=== PATIENT | female | born 1995 | race Caucasian/White ===

== ENCOUNTER 2018-02-25 09:14 | Emergency (ER) | payer OTHER ==
[2018-02-25] MEDS ORDERED: NS(*) 0.9% 1000 ML BAG 1,000 ML IV ONE ×2 (09:26→09:27)
[2018-02-25] MEDS ORDERED: ONDANSETRON 4 MG/2 ML VIAL IVP ONE (09:30)
[2018-02-25] MEDS ORDERED: KETOROLAC 30 MG/ML VIAL IVP ONE (09:30)
[2018-02-25 09:35] LABS: PLATELET COUNT, AUTOMATED 302 K/uL (150-450)
--- NOTE | 2018-02-25 09:37 | ER Report ---
History and Physical Time Seen By MD: 09:30 Hx. of Stated Complaint: PT PRESENTS WITH LLQ PAIN SINCE THIS AM. HX OF RENAL CALC, BUT NOT SURE IF THIS IS SAME PAIN, N/V HPI/ROS CHIEF COMPLAINT: Left flank left lower quadrant pain HISTORY OF PRESENT ILLNESS: 22-year-old female history of kidney stones last time was 3-1/2-4 years ago comes in with acute exacerbation of a left flank and left lower quadrant pain and some increased frequency in urination pain with change of position sharp stabbing localized to the left flank and left lower quadrant area had her last menstrual cycle this past couple of days patient solomon es any sexual activity patient denies any vaginal bleeding or discharge nausea without vomiting no diarrhea no additional complaints noted REVIEW OF SYSTEMS: Respiratory: No cough, no dyspnea. Cardiovascular: No chest pain, no palpitations. Gastrointestinal: Left lower quadrant left flank abdominal pain nausea without vomiting Musculoskeletal: No back pain. Remainder of the 14 system rev: Yes Allergies: Coded Allergies: No Known Drug Allergies (Unverified , 02/25/18) Home Meds No Active Prescriptions or Reported Meds Reviewed Nurses Notes: Yes Old Medical Records Reviewed: Yes Constitutional Vital Sign - Last 24 Hours 02/25/18 02/25/18 02/25/18 02/25/18 09:16 09:17 09:51 10:00 Temp 97.4 Pulse 59 Resp 22 B/P (MAP) 118/74 (89) 118/74 119/65 (83) 126/60 (82) Pulse Ox 97 O2 Delivery Room Air Physical Exam General Appearance: The patient is alert, has no immediate need for airway protection and no current signs of toxicity. [ ] Eyes: Pupils equal and round no injection. Respiratory: Chest is non tender, lungs are clear to auscultation. Cardiac: regular rate and rhythm [ ] Gastrointestinal: Abdomen has very mild tenderness to deep palpation left lower quadrant positive percussive tenderness in the left CVA angle normal bowel sounds no rebound guarding or masses Musculoskeletal: Neck: Neck is supple and non tender. Extremities have full range of motion and are non tender. Skin: No rashes or lesions. [ ] DIFFERENTIAL DIAGNOSIS: After history and physical exam differential diagnosis was considered for kidney stone versus ovarian cyst versus ovarian torsion versus ectopic Medical Decision Making Data Points Result Diagram: 02/25/1892102/25/18921 Laboratory Hematology Test 02/25/18 09:22 02/25/18 09:31 Red Blood Count 4.74 M/uL (4.17-5.56) Mean Corpuscular Volume 87.5 fL (80.0-96.0) Mean Corpuscular Hemoglobin 30.0 pg (26.0-33.0) Mean Corpuscular Hemoglobin Concent 34.3 g/dL (32.0-36.0) Red Cell Distribution Width 14.2 % (11.5-14.5) Mean Platelet Volume 8.1 fL (7.2-11.1) Neutrophils (%) (Auto) 53.4 % (39.4-72.5) Lymphocytes (%) (Auto) 34.7 % (17.6-49.6) Monocytes (%) (Auto) 7.7 % (4.1-12.4) Eosinophils (%) (Auto) 3.1 % (0.4-6.7) Basophils (%) (Auto) 1.1 % (0.3-1.4) Nucleated RBC Relative Count (auto) 0.0 /100WBC Neutrophils # (Auto) 4.2 K/uL (2.0-7.4) Lymphocytes # (Auto) 2.7 K/uL (1.3-3.6) Monocytes # (Auto) 0.6 K/uL (0.3-1.0) Eosinophils # (Auto) 0.2 K/uL (0.0-0.5) Basophils # (Auto) 0.1 K/uL (0.0-0.1) Nucleated RBC Absolute Count (auto) 0.00 K/uL Sodium Level 141 mmol/L (137-145) Potassium Level 3.5 mmol/L (3.5-5.0) Chloride Level 108 mmol/L (98-107) Carbon Dioxide Level 22 mmol/L (22-31) Blood Urea Nitrogen 15 mg/dl (7-18) Creatinine 0.80 mg/dl (0.52-1.04) Glomerular Filtration Rate Calc > 60.0 Random Glucose 127 mg/dl (75-110) Calcium Level 9.3 mg/dl (8.4-10.2) Total Bilirubin 0.5 mg/dl (0.2-1.3) Aspartate Amino Transf (AST/SGOT) 25 U/L (0-35) Alanine Aminotransferase (ALT/SGPT) 29 U/L (0-56) Alkaline Phosphatase 65 U/L (0-126) Total Protein 7.9 g/dl (6.3-8.2) Albumin 4.6 g/dl (3.5-5.0) Lipase 89 U/L (23-300) Human Chorionic Gonadotropin, Qual Negative (NEGATIVE) Urine Color [place] Urine Clarity Cloudy Urine pH 5.0 pH (4.8-9.5) Urine Specific [place] 1.029 Urine Protein 30 mg/dL (NEGATIVE) Urine Glucose (UA) Negative mg/dL (NEGATIVE) Urine Ketones Negative mg/dL (NEGATIVE) Urine Blood Large (NEGATIVE) Urine Nitrite Negative (NEGATIVE) Urine Bilirubin Negative (NEGATIVE) Urine Urobilinogen Negative mg/dL (0.2-1.9) Urine Leukocyte Esterase Negative (NEGATIVE) Urine RBC 200 /HPF (0-2/HPF) Urine WBC 3 /HPF (0-5/HPF) Urine Squamous Epithelial Cells Many /LPF (</=FEW) Urine Bacteria Few /HPF (NONE-FEW) Urine Mucus Few /HPF (NONE-FEW) Chemistry Test 02/25/18 09:22 02/25/18 09:31 White Blood Count 7.8 k/uL (4.5-11.0) Red Blood Count 4.74 M/uL (4.17-5.56) Hemoglobin 14.2 g/dL (12.0-16.0) Hematocrit 41.5 % (34.0-47.0) Mean Corpuscular Volume 87.5 fL (80.0-96.0) Mean Corpuscular Hemoglobin 30.0 pg (26.0-33.0) Mean Corpuscular Hemoglobin Concent 34.3 g/dL (32.0-36.0) Red Cell Distribution Width 14.2 % (11.5-14.5) Platelet Count 302 K/uL (150-450) Mean Platelet Volume 8.1 fL (7.2-11.1) Neutrophils (%) (Auto) 53.4 % (39.4-72.5) Lymphocytes (%) (Auto) 34.7 % (17.6-49.6) Monocytes (%) (Auto) 7.7 % (4.1-12.4) Eosinophils (%) (Auto) 3.1 % (0.4-6.7) Basophils (%) (Auto) 1.1 % (0.3-1.4) Nucleated RBC Relative Count (auto) 0.0 /100WBC Neutrophils # (Auto) 4.2 K/uL (2.0-7.4) Lymphocytes # (Auto) 2.7 K/uL (1.3-3.6) Monocytes # (Auto) 0.6 K/uL (0.3-1.0) Eosinophils # (Auto) 0.2 K/uL (0.0-0.5) Basophils # (Auto) 0.1 K/uL (0.0-0.1) Nucleated RBC Absolute Count (auto) 0.00 K/uL Glomerular Filtration Rate Calc > 60.0 Calcium Level 9.3 mg/dl (8.4-10.2) Total Bilirubin 0.5 mg/dl (0.2-1.3) Aspartate Amino Transf (AST/SGOT) 25 U/L (0-35) Alanine Aminotransferase (ALT/SGPT) 29 U/L (0-56) Alkaline Phosphatase 65 U/L (0-126) Total Protein 7.9 g/dl (6.3-8.2) Albumin 4.6 g/dl (3.5-5.0) Lipase 89 U/L (23-300) Human Chorionic Gonadotropin, Qual Negative (NEGATIVE) Urine Color [place] Urine Clarity Cloudy Urine pH 5.0 pH (4.8-9.5) Urine Specific [place] 1.029 Urine Protein 30 mg/dL (NEGATIVE) Urine Glucose (UA) Negative mg/dL (NEGATIVE) Urine Ketones Negative mg/dL (NEGATIVE) Urine Blood Large (NEGATIVE) Urine Nitrite Negative (NEGATIVE) Urine Bilirubin Negative (NEGATIVE) Urine Urobilinogen Negative mg/dL (0.2-1.9) Urine Leukocyte Esterase Negative (NEGATIVE) Urine RBC 200 /HPF (0-2/HPF) Urine WBC 3 /HPF (0-5/HPF) Urine Squamous Epithelial Cells Many /LPF (</=FEW) Urine Bacteria Few /HPF (NONE-FEW) Urine Mucus Few /HPF (NONE-FEW) Urinalysis Test 02/25/18 09:31 Urine Color Eden Urine Clarity Cloudy Urine pH 5.0 pH (4.8-9.5) Urine Specific [place] 1.029 Urine Protein 30 mg/dL (NEGATIVE) Urine Glucose (UA) Negative mg/dL (NEGATIVE) Urine Ketones Negative mg/dL (NEGATIVE) Urine Blood Large (NEGATIVE) Urine Nitrite Negative (NEGATIVE) Urine Bilirubin Negative (NEGATIVE) Urine Urobilinogen Negative mg/dL (0.2-1.9) Urine Leukocyte Esterase Negative (NEGATIVE) Urine RBC 200 /HPF (0-2/HPF) Urine WBC 3 /HPF (0-5/HPF) Urine Squamous Epithelial Cells Many /LPF (</=FEW) Urine Bacteria Few /HPF (NONE-FEW) Urine Mucus Few /HPF (NONE-FEW) ED Course/Re-evaluation ED Course ED clinical course medical decision making this is a 22-year-old female comes emergency Department today with complaint of left flank pain and left lower quadrant pain she has a demonstrated 2.2 mm left renal colic kidney stone with no hydronephrosis demonstrating no sign of infectious etiology patient be discharged diagnosis kidney stone with urology follow-up Decision to Disposition Date: Feb 25, 2018 Decision to Disposition Time: 10:53 Depart Departure Latest Vital Signs Vital Signs Date Time Temp Pulse Resp B/P (MAP) Pulse Ox O2 Delivery O2 Flow Rate FiO2 02/25/18 10:00 126/60 (82) 02/25/18 09:17 97.4 59 22 97 Room Air Impression: Primary Impression: Kidney stone Condition: Improved Disposition: HOME OR SELF-CARE Referrals: MILI SLOAN MD 5 Days New Scripts Ketorolac Tromethamine (KETOROLAC TROMETHAMINE) 10 Mg Tab 10 MG PO Q6H PRN for MILD PAIN, #12 TAB Prov: SARAH DOWD MD 02/25/18 Patient Instructions: Kidney Stones (DC) SARAH DOWD MD Feb 25, 2018 09:37
--- NOTE | 2018-02-25 10:20 | RADIOLOGY IMAGING REPORT ---
FACILITY: [facility] [place] PATIENT NAME: Neema Colon : 1995 MR: [id number] V: [id number] EXAM DATE: ORDERING PHYSICIAN: SARAH DOWD TECHNOLOGIST: Location: [facility] Patient: Neema Colon : 1995 Visit/Account:[id number] Date of Sevice: 02/25/2018 ABDOMEN/PELVIS W/O CONTRAST COMPARISON: None. HISTORY: Left lower quadrant pain, suspected kidney stone TECHNIQUE: Axial CT abdomen and pelvis without intravenous contrast. Coronal and sagittal reformats . One of the following dose optimization techniques was utilized in the performance of this exam: auto mated exposure control; adjustment of the mA and/or kV according to patient size; or use of iterative reconstruction technique. Specific details can be referenced in the facility's radiology CT exam op erational policy. CONTRAST: No intravenous contrast. FINDINGS: Lack of IV contrast limits assessment of the liver and other solid organs for subtle pathology. Withi n these limitations, the following observations are made: LUNG BASES: Unremarkable. LIVER: Unremarkable. BILIARY: Unremarkable gallbladder. No intra-or extrahepatic bile duct dilatat ion. SPLEEN: Unremarkable. Normal size. Homogeneous density. PANCREAS: Unremarkable. Limited assessment by noncontrast CT. No focal enlargement to suggest the p resence of a mass. No evidence of acute pancreatitis. ADRENALS: Unremarkable. KIDNEYS: Mild hydronephrosis due to a 2 x 2 millimeter mildly obstructive calculus at the left urete rovesical junction on axial image 119 and coronal image 39. No stones in the left kidney. No perine phric fluid or fat stranding. Normal noncontrast CT appearance of the right kidney without stones, c ontour deforming mass, hydronephrosis or kidney/ureter calculus. GI/MESENTERY: Unremarkable. No visible mass, obstruction, or bowel wall thickening. VASCULAR: Unremarkable. LYMPH NODES: No adenopathy. BLADDER: Decompressed without appreciable wall thickening and with no evidence of bladder calculus. PELVIC ORGANS: Normal noncontrast CT appearance of the uterus and ovaries. BONES: Unremarkable.No acute-appearing fracture or suspicious osseous lesion. OTHER: Negative. IMPRESSION: 1. Mild left hydronephrosis due to a 2 x 2 millimeter mildly obstructive stone at the left ureterove sical junction just proximal to the bladder. 2. Otherwise unremarkable noncontrast CT abdomen and pelvis. Report Dictated By: Romaine Mccallum at 02/25/2018 10:09 AM Report E-Signed By: Romaine Mccallum at 02/25/2018 10:15 AM [id number]
[2018-02-25] MEDS ORDERED: KET10 PO (10:54)
[2018-02-25 11:00] VITALS: BP 113/66
== END 2018-02-25 11:15 | disposition home or self-care (01) ==
LOC: ER 09:18
DX: N20.0 Calculus of kidney (principal); Z87.442 Personal history of urinary calculi
CPT/HCPCS: 74176; 81001; 83690; 84703; 85025; 96360; 96374; 96375; 99284; J1885; J2405; J7030; 82040; 82247; 82310; 82374; 82435; 82565; 82947; 84075; 84132; 84155; 84295; 84450; 84460; 84520; 96361; 96376

== ENCOUNTER → 2018-04-02 | Outpatient (CLI) | payer OTHER ==
[~2018-04-02] MED LIST: CLIN30GE15 TP; ECON15CR10 TP; KET10 PO; MINO100C27 PO; TRET20CR37 TP
[2018-04-02 10:08] LABS: PLATELET COUNT, AUTOMATED 322 K/uL (150-450)
== END ==
LOC: LAB 09:46
PROVIDERS: ATTEND Nurse Practitioner
DX: L63.9 Alopecia areata, unspecified (principal)
CPT/HCPCS: 36415; 82040; 82247; 82310; 82374; 82435; 82565; 82947; 84075; 84132; 84155; 84295; 84443; 84450; 84460; 84520; 85025